=== PATIENT | female | born 2000 | race Caucasian/White ===

== ENCOUNTER 2019-03-20 15:16 | Emergency (ER) | payer OTHER ==
[~2019-03-20] VITALS: Ht 157.5 cm; Wt 55.3 kg
[2019-03-20] MEDS ORDERED: IBUPROFEN 800800 M1 PO (15:30)
[2019-03-20] MEDS ORDERED: FOLIC ACID1 MG PO (15:31)
[2019-03-20] MEDS ORDERED: AZULFIDINE500 MG PO (15:32)
[2019-03-20] MEDS ORDERED: ONDANSETRON HCL4 M2 PO (16:36)
[2019-03-20] MEDS ORDERED: ZANAFLEX4 MG PO (16:36)
[2019-03-20] MEDS ORDERED: BUTALB-APAP-CA1 EACH PO (16:36)
[2019-03-20 16:58] VITALS: BP 125/85
== END 2019-03-20 17:02 | disposition home or self-care (01) ==
LOC: M.ERS 15:16
DX: S06.0X0A Concussion without loss of consciousness, initial encounter (principal); K50.90 Crohn's disease, unspecified, without complications; Z88.0 Allergy status to penicillin; V49.49XA Driver injured in collision with other motor vehicles in traffic accident, initial encounter; Y93.89 Activity, other specified; Y92.89 Other specified places as the place of occurrence of the external cause; Y99.8 Other external cause status

== ENCOUNTER 2020-01-14 13:36 | Inpatient (IN) | payer OTHER ==
[~2020-01-14] VITALS: Ht 157.5 cm; Wt 56.7 kg
--- NOTE | ~2020-01-14 | CON ---
[address] [address] CONSULTATION Name: LEEANN PERAZA Room: [address] M.R.#: [id number] Admission: 01/14/20 Attend Phys: Rosy Simpson Discharge: Date of : 89 Report #: [id number] THIS REPORT FOR: //name// cc: Physician not on staff Physician not on staff ~ THIS REPORT FOR: //name// CC: ЕЛЕНА Balderas Physician staff DATE OF SERVICE: 01/15/2020 REASON FOR CONSULT: Nausea, vomiting and abdominal pain. HISTORY OF PRESENT ILLNESS: This is a 19-year-old patient who reports that she has been diagnosed with Crohn's disease since age 7. She was followed at [facility], but since she is 19 years old, she was told to follow up with adult fur repair inspector. She reports that she has been on sulfasalazine for many years, but since she was not doing good a year ago, she underwent colonoscopy and then placed on Humira biweekly. She reports that she has been taking Humira and continued to get abdominal pain. She denies any stool frequency or rectal bleeding. She also denies any weight loss. Since hospitalization, she had a CT of abdomen and pelvis, which showed thickening of the terminal ileum and right colon. She also had some enlarged lymph nodes around the same area. The patient did not have any leukocytosis or anemia. PAST MEDICAL HISTORY: Significant for above, otherwise unremarkable. ALLERGIES: SIGNIFICANT TO PENICILLIN. MEDICATIONS: Please refer to MAR. SOCIAL HISTORY: The patient is single. She attends school. Denies tobacco or alcohol use. FAMILY HISTORY: Significant for IBS. PHYSICAL EXAMINATION: VITAL SIGNS: Reveals blood pressure of 105/67, respirations 16, pulse 89, temperature 97.8. LUNGS: Clear. CARDIOVASCULAR: Regular. ABDOMEN: Soft, mildly tender to palpation in the lower abdomen[place] [address] CONSULTATION Name: LEEANN PERAZA Yon Room: [address] IN [facility].#: [id number] Admission: 01/14/20 Attend Phys: Rosy Simpson Discharge: Date of : 89 Report #: [id number] are positive. NEUROLOGIC: The patient is alert and oriented x 3. There is no focal neurologic deficit. LABORATORY DATA: Reveal sodium of 136, potassium 3.6, BUN is 6, creatinine 0.5, glucose 88, AST is 43, ALT 55, alkaline phosphatase is 80, albumin is 3.5. WBC is 5.9 with hemoglobin of 13.7 and platelet of 256. IMAGING: CT of abdomen and pelvis was obtained on admission as described above. ASSESSMENT AND PLAN: The patient with history of Crohn's disease since childhood, who has abdominal pain, nausea and vomiting. We will consider endoscopic evaluation of both upper and lower. She has been on Humira for over 6 months and if inflammation is ongoing, we may consider changing her biologics. She has been started on Solu-Medrol and antibiotics, which we will continue for now. I will make further recommendation based on tomorrow's endoscopic finding. By: [id number] Sandor Adams MD /nt
--- NOTE | ~2020-01-14 | PROC ---
[address] [address] PROCEDURE REPORT Name: LEEANN PERAZA Room: [address] ADM IN M.R.#: [id number] Admission: 01/14/20 Attend Phys: Rosy nichole los [place] Discharge: Date of : 89 Report #: [id number] THIS REPORT FOR: //name// cc: Physician not on staff Physician not on staff ~ THIS REPORT FOR: //name// For GI report, please see the Provation report in Perceptive 7 content. By: 1521Medical Records Staff [facility] /DYLAN
[~2020-01-14 13:36] MED LIST: AZULFIDINE500 MG PO; BUTALB-APAP-CA1 EACH PO; FOLIC ACID1 MG PO; IBUPROFEN 800800 M1 PO; ONDANSETRON HCL4 M2 PO; ZANAFLEX4 MG PO
[2020-01-14 13:43] VITALS: BP 131/90
[2020-01-14] MEDS ORDERED: BIRTH CONTROL (13:48)
[2020-01-14] MEDS ORDERED: HUMIRA10 MG/0.1 SUBQ (13:48)
[2020-01-14 14:27] LABS: URINE BILIRUBIN NEGATIVE (Negative); URINE BLOOD 2+ (Negative); URINE CLARITY SL CLOUDY; URINE COLOR YELLOW; URINE GLUCOSE-RANDOM NEGATIVE (Negative); URINE KETONES NEGATIVE (Negative); URINE LEUKOCYTES-REFLEX NEGATIVE (Negative); URINE NITRITE-REFLEX NEGATIVE (Negative); URINE PROTEIN NEGATIVE (Negative); URINE SPECIFIC GRAVITY >= 1.030 (1.005-1.030); URINE UROBILINOGEN 0.2 E.U./dl (0.2-1.0)
[2020-01-14 14:36] LABS: BACTERIA-REFLEX >30 Many /HPF (None Seen); CASTS None Seen /LPF (None Seen); CRYSTALS None Seen /LPF (None Seen); MUCUS 4-6 Moderate strn/LPF (None Seen); SQUAMOUS >10 Many /LPF (0-3); URINE RBC 3-10 Few /HPF (0-2); URINE WBC-REFLEX 0-5 Rare /HPF (0-5)
[2020-01-14 14:49] LABS: ABSOLUTE LYMPHOCYTES 1.1 thou/uL (0.8-5.3); ABSOLUTE MONOCYTES 0.4 thou/uL (0.0-1.2); ABSOLUTE NEUTROPHILS 4.4 thou/uL (1.6-8.1); BASOPHILS 0.3 %; EOSINOPHILS 0.1 %; HEMATOCRIT 39.3 % (37.0-47.0); HEMOGLOBIN 13.7 gm/dL (12.0-15.0); MCH 28.6 pg (26.0-34.0); MCHC 34.8 g/dL (28.0-37.0); MCV 82.1 fL (80.0-100.0); MPV 8.1 fl. (7.2-11.1); NUCLEATED RBCS 0 /100WBC; PLATELET COUNT* 256 thou/uL (150-400); POLYS 73.6 %; RBC 4.79 mil/uL (4.20-5.00); WBC 5.9 thou/uL (4.0-11.0)
[2020-01-14 14:59] LABS: CALCIUM 8.5 mg/dL (8.5-10.1); CREATININE 0.5 mg/dL (0.6-1.3); POTASSIUM 3.6 mmol/L (3.5-5.1)
[2020-01-14 15:04] LABS: ALBUMIN 3.5 g/dL (3.4-5.0); TOTAL BILIRUBIN 0.4 mg/dL (<0.1-1.0); TOTAL PROTEIN 7.8 g/dL (6.4-8.2)
--- NOTE | 2020-01-14 15:39 | EKG ---
[place] [address] ELECTROCARDIOGRAM REPORT Name: LEEANN PERAZA Room: [facility]#: [id number] Admission: 01/14/20 Attend Phys: Discharge: Date of : 89 Date of Service: 01/14/20 1443 Report #: [id number] THIS REPORT FOR: //name// [facility] ED Test Date: 2020-01-14 Test Time: 14:43:27 Pat Name: LEEANN PERAZA Department: Room: Gender: F Expander: [facility] : 2000 Requested By: Claire Deng Order Number: [id number] MD: Abdullahi Marlow Measurements Intervals [place] Rate: 93 P: 68 MA: 119 QRS: 41 QRSD: 88 T: -17 QT: 341 QTc: 425 Interpretive Statements Sinus rhythm Borderline short MA interval Borderline Q waves in lateral leads Borderline repolarization abnormality No previous ECG available for comparison Electronically Signed On 01-14-2020 15:39:03 CDT by Abdullahi Marlow [email or web address] <ELECTRONICALLY SIGNED> By: Abdullahi Marlow MD, [facility] 01/14/20 1539 1443 1443 Abdullahi Marlow MD, FAC /EPI
[2020-01-14 18:48] VITALS: BP 107/67
[2020-01-15 09:00] VITALS: BP 105/67
[2020-01-15 17:49] VITALS: BP 98/59
[2020-01-15 20:00] VITALS: BP 112/73
[2020-01-16] VITALS: BP 109/61
[2020-01-16 05:43] LABS: ALBUMIN 3.3 g/dL (3.4-5.0); CALCIUM 8.7 mg/dL (8.5-10.1); CREATININE 0.4 mg/dL (0.6-1.3); POTASSIUM 3.8 mmol/L (3.5-5.1); TOTAL BILIRUBIN 0.2 mg/dL (<0.1-1.0); TOTAL PROTEIN 7.7 g/dL (6.4-8.2)
[2020-01-16 07:50] VITALS: BP 109/68
[2020-01-16 20:30] VITALS: BP 111/55
[2020-01-17 00:20] VITALS: BP 109/63
[2020-01-17 07:40] VITALS: BP 125/87
[2020-01-17 16:39] VITALS: BP 125/87
[2020-01-17] MEDS ORDERED: METRONIDAZOLE500 M4 PO (17:06)
[2020-01-17] MEDS ORDERED: CIPRO500 M1 PO (17:06)
[2020-01-17] MEDS ORDERED: PREDNISONE 20 M20 M1 PO (17:07)
[2020-01-17 21:00] VITALS: BP 128/76
[2020-01-18 07:30] VITALS: BP 103/60
[2020-01-18] MEDS ORDERED: PROBIOTIC1 EAC1 PO (09:28)
[2020-01-18] MEDS ORDERED: CIPRO500 M1 PO (09:28)
[2020-01-18] MEDS ORDERED: PREDNISONE 20 M20 M1 PO (09:55)
== END 2020-01-18 10:49 | disposition home or self-care (01) | DRG 387 ==
LOC: M.ERS 13:36 → M.ORTHSURG 17:25 → M.TBA-ER 17:25 → M.ORTHSURG 18:54
PROVIDERS: Nurse Practitioner Family; ADMIT Family Medicine; ATTEND Family Medicine
PROC: 0DJD8ZZ Inspection of Lower Intestinal Tract, Via Natural or Artificial Opening Endoscopic (ICD-10-PCS; principal; 2020-01-16)
PROC: 0DJ08ZZ Inspection of Upper Intestinal Tract, Via Natural or Artificial Opening Endoscopic (ICD-10-PCS; principal; 2020-01-16)
DX: K50.10 Crohn's disease of large intestine without complications (principal); Z88.0 Allergy status to penicillin; Z79.899 Other long term (current) drug therapy

== ENCOUNTER 2020-02-09 19:04 | Emergency (ER) | payer OTHER ==
[~2020-02-09] VITALS: Ht 157.5 cm; Wt 61.2 kg
[~2020-02-09 19:04] MED LIST changes: +BIRTH CONTROL; +CIPRO500 M1 PO; +HUMIRA10 MG/0.1 SUBQ; +METRONIDAZOLE500 M4 PO; +PREDNISONE 20 M20 M1 PO; +PROBIOTIC1 EAC1 PO
[2020-02-09] MEDS ORDERED: IRON325 M1 PO (19:14)
[2020-02-09 19:31] LABS: URINE BILIRUBIN NEGATIVE (Negative); URINE BLOOD NEGATIVE (Negative); URINE CLARITY CLEAR; URINE COLOR YELLOW; URINE GLUCOSE-RANDOM NEGATIVE (Negative); URINE KETONES NEGATIVE (Negative); URINE LEUKOCYTES-REFLEX NEGATIVE (Negative); URINE NITRITE-REFLEX NEGATIVE (Negative); URINE PROTEIN NEGATIVE (Negative); URINE UROBILINOGEN 0.2 E.U./dl (0.2-1.0)
[2020-02-09] MEDS ORDERED: TYLENOL WITH CO1 TA1 PO (19:38)
[2020-02-09] MEDS ORDERED: LIDOCAINE VISC100 ML SWISH&SPIT (19:38)
[2020-02-09] MEDS ORDERED: CENTANY30 GM TOP (19:38)
[2020-02-09] MEDS ORDERED: BACTRIM DS TAB1 EACH PO (19:42)
[2020-02-09 20:08] VITALS: BP 122/63
== END 2020-02-09 20:08 | disposition home or self-care (01) ==
LOC: M.ERS 19:04
PROVIDERS: Physician Assistant
DX: R21 Rash and other nonspecific skin eruption (principal); K50.90 Crohn's disease, unspecified, without complications; Z88.0 Allergy status to penicillin